=== PATIENT | female | born 1975 | race Caucasian/White ===

== ENCOUNTER 2017-07-24 13:29 | Emergency (ER) | payer OTHER ==
[~2017-07-24] VITALS: Ht 154.9 cm; Wt 81.7 kg
[2017-07-24 14:08] LABS: ABSOLUTE BASOPHILS 0.1 thou/uL (0.0-0.2); ABSOLUTE EOSINOPHILS 0.1 thou/uL (0.0-0.7); ABSOLUTE LYMPHOCYTES 2.2 thou/uL (0.8-5.3); ABSOLUTE MONOCYTES 0.6 thou/uL (0.0-1.2); ABSOLUTE NEUTROPHILS 5.2 thou/uL (1.6-8.1); EOSINOPHILS 1.3 %; HEMATOCRIT 40.9 % (37.0-47.0); HEMOGLOBIN 13.8 gm/dL (12.0-15.0); MCH 28.6 pg (26.0-34.0); MCHC 33.7 g/dL (28.0-37.0); MCV 84.9 fL (80.0-100.0); MONOCYTES 7.4 %; MPV 8.2 fl. (7.2-11.1); NUCLEATED RBCS 0 /100WBC; PLATELET COUNT* 297 thou/uL (150-400); POLYS 63.3 %; RBC 4.82 mil/uL (4.20-5.00); WBC 8.2 thou/uL (4.0-11.0)
[2017-07-24 14:38] LABS: CALCIUM 9.3 mg/dL (8.5-10.1); CREATININE 0.7 mg/dL (0.6-1.3)
[2017-07-24 14:43] LABS: ALBUMIN 3.9 g/dL (3.4-5.0); TOTAL BILIRUBIN 0.2 mg/dL (<0.1-1.0); TOTAL PROTEIN 7.2 g/dL (6.4-8.2)
[2017-07-24 14:52] LABS: URINE BILIRUBIN NEGATIVE (Negative); URINE BLOOD NEGATIVE (Negative); URINE CLARITY CLEAR; URINE COLOR YELLOW; URINE GLUCOSE-RANDOM NEGATIVE (Negative); URINE KETONES NEGATIVE (Negative); URINE LEUKOCYTES-REFLEX NEGATIVE (Negative); URINE NITRITE-REFLEX NEGATIVE (Negative); URINE PROTEIN NEGATIVE (Negative); URINE UROBILINOGEN 0.2 E.U./dl (0.2-1.0)
[2017-07-24] MEDS ORDERED: HYDROCODONE-AP1 EAC6 PO (15:10)
[2017-07-24 15:30] VITALS: BP 117/59
--- NOTE | 2017-07-25 11:34 | EKG ---
[place] [address] ELECTROCARDIOGRAM REPORT Name: STODDARDMALDONADO Room: [facility]#: [id number] Admission: 07/24/17 Attend Phys: Discharge: 07/24/17 Date of : 73 Report #: [id number] THIS REPORT FOR: //name// [facility] ED Test Date: 2017-07-24 Test Time: 14:35:12 Pat Name: MALDONADO STODDARD Department: Room: Gender: F Business Economist: Maryann BRUNO : 1975 Requested By: Clover Walker Order Number: [id number] MD: Tacos Altamirano Measurements Intervals [place] Rate: 49 P: 50 FL: 164 QRS: -21 QRSD: 104 T: 6 QT: 434 QTc: 392 Interpretive Statements Sinus bradycardia Inferior infarct, old Consider anterior infarct No previous ECG available for comparison Electronically Signed On 07-25-2017 11:33:47 CDT by Tacos Altamirano [email or web address] <ELECTRONICALLY SIGNED> By: Tacos Altamirano MD, [facility] 07/25/17 1133 1435 1435 Tacos Altamirano MD, FACC /EPI
== END 2017-07-24 15:30 | disposition home or self-care (01) ==
LOC: M.ERS 13:29
PROVIDERS: Physician Assistant
DX: R10.11 Right upper quadrant pain (principal); R10.13 Epigastric pain; F17.210 Nicotine dependence, cigarettes, uncomplicated